=== PATIENT | female | born 1950 | race Caucasian/White ===

== ENCOUNTER 2021-04-14 15:44 | Emergency (ER) | payer OTHER, MEDICARE ==
[2021-04-14 16:12] VITALS: PULSE 89; BMI 20.1
[2021-04-14] MEDS ORDERED: CASIRIVIMAB/IMDEVIMAB 10 ML in SODIUM CHLORIDE 100 ML IVPB ONE (17:15)
[2021-04-14 18:34] LABS: CALCIUM 9.1 mg/dL (8.5-10.1)
[2021-04-14 18:35] LABS: ALBUMIN 3.7 g/dl (3.4-5.0); BLOOD UREA NITROGEN 12.8 mg/dL (7-18)
[2021-04-14 18:38] LABS: CREATININE 0.6 mg/dL (0.55-1.3)
[2021-04-14 18:39] LABS: TOT PROT 7.1 g/dl (6.4-8.2)
[2021-04-14 18:40] LABS: BILIRUBIN,TOTAL 0.3 mg/dL (0.2-1)
[2021-04-14 20:12] VITALS: BP 143/68; TEMP 98.6
== END 2021-04-14 20:12 | disposition home or self-care (01) ==
LOC: JCOVINFU 15:44
PROC: 3E033GC Introduction of Other Therapeutic Substance into Peripheral Vein, Percutaneous Approach (ICD-10-PCS; principal; 2021-04-14)
DX: U07.1 COVID-19 (principal)
CPT/HCPCS: 36415; 80053; 99284-25; Q0240